=== PATIENT | female | born 1985 | race Caucasian/White ===

== ENCOUNTER 2022-08-13 21:40 | Emergency (ER) | payer SELFPAY ==
[2022-08-13 23:31] LABS: ADD URINE CULTURE? YES (NO); Appearance Clear (Clear); Bacteria Many /HPF (None Seen); Bilirubin Negative (Negative); Blood Negative (Negative); Epithelial Cells Few /HPF (None Seen); Glucose, Urine >=1000 mg/dL (Negative); Hyaline Casts NONE SEEN /LPF (0-2); Ketones Negative (Negative); Leukocyte Esterase Negative (Negative); Nitrite Positive (Negative); Protein,Urine Dip Negative (Negative); RBC 0-2 /HPF (0-5); Specific Gravity >=1.030 (1.005-1.030); Urobilinogen 0.2 mg/dL (0.2)
[2022-08-13 23:33] LABS: Absolute Neutrophil Ct (ANC) 12.08 x10^3/uL (1.4-6.9); BASOPHIL % 0.4 % (0.0-0.4); Basophil (Absolute #) 0.07 x10^3/uL (0-0.4); Eosinophil % 0.5 % (0.00-5.0); Eosinophil (Absolute #) 0.09 x10^3/uL (0-0.5); Hematocrit 41.5 % (35-47); Hemoglobin 13.3 g/dL (12.0-16.0); IMMATURE GRAN # 0.07 x10^3u/L (0.00-0.03); IMMATURE GRAN % 0.4 % (0.00-0.4); Lymphocyte (Absolute #) 3.69 x10^3/uL (1.0-4.6); Lymphocytes % 21.5 % (24.0-44.0); Mean Cell Volume 83.7 fL (78-100); Mean Corpuscular Hemoglobin 26.8 pg (26-32); Mean Platelet Volume 10.4 fL (7.5-11.0); Monocyte (Absolute #) 1.16 x10^3/uL (0.0-1.3); Monocytes % 6.8 % (0.0-12.0); Neutrophil % 70.4 % (36.0-66.0); Platelet Count 326 x10^3/uL (150-450); Red Blood Count 4.96 x10^6/uL (4.1-5.4); Red Cell Distribution Width 14.6 % (11.5-14.0); White Blood Count 17.2 x10^3/uL (4.0-10.5)
[2022-08-13] MEDS ORDERED: Sodium Chloride 0.9% 1000 ML 1,000 ML IV SCH (23:45)
[2022-08-13 23:51] LABS: ALBUMIN 4.1 g/dL (3.5-5.0); ALKALINE PHOSPHATASE 85 U/L (38-126); ANION GAP 16.6 MEQ/L (5-15); BLOOD UREA NITROGEN 16 mg/dL (7-17); CHLORIDE 104 mmol/L (98-107); Calcium 9.2 mg/dL (8.4-10.2); Carbon Dioxide 23 mmol/L (22-30); Creatinine 1 0.74 mg/dL (0.52-1.04); EST GLOMERULAR FILTRATION RATE > 60.0 ML/MIN; Glucose 249 mg/dL (74-106); Potassium 4.1 mmol/L (3.5-5.1); SGOT/AST 17 U/L (14-36); SGPT/ALT 21 U/L (0-35); SODIUM 139 mmol/L (137-145); Total Protein 7.8 g/dL (6.3-8.2)
[2022-08-13] MEDS ORDERED: Hydromorphone 1 mg/ml Injection IV ONE (23:59)
[2022-08-14] MEDS ORDERED: Phenergan 25 MG INJ*** 25 MG in Sodium Chloride 0.9% 100 ML IV PRN ×2
[2022-08-14] MEDS ORDERED: ROCEPHIN 1 Gm-D5w 50 ml Bag** 1 G/50 ML IVPB IV STA (00:03)
--- NOTE | 2022-08-14 00:07 | ERPHSYRPT ---
- History of Present Illness Time Seen by Provider: 08/14/22 00:00 Historian: patient Exam Limitations: no limitations Patient Subjective Stated Complaint: pt state I don't know if I have a kidney stone, ovarian cyst, or just threw my back out Triage Nursing Assessment: pt ambulated into the er; pt is axo x4; c/o left flank pain; pt states pain radiates from LLQ to left flank pain; c/o nausea; abd round, large, soft, nontender; hyperactive bowel sounds; no respiratory distress present; skin PDW; vitals wnl Physician History: Patient is a 36-year-old female presents to our ED for evaluation of left flank pain. Flank pain started just prior to arrival. Patient states she has a history of kidney stones. Patient believes she is experiencing a kidney stone at this time. No trauma. No fever. No nausea vomiting or diaphoresis. No obvious hematuria. No diarrhea. No rash. Pain tends to radiate to her left gr oin. Patient voices no other complaints or concerns at this time. Portions of this note were created with voice recognition technology. There may be grammatical, spelling, punctuation or sound alike errors Timing/Duration: today Activities at Onset: none Quality: aching Abdominal Pain Onset Location: flank (Left flank pain) Severity of Pain-Max: moderate Severity of Pain-Current: mild Modifying Factors: Improves With: nothing Associated Symptoms: denies symptoms Previous symptoms: same symptoms as today Allergies/Adverse Reactions: codeine Allergy (Verified 08/13/22 22:28) ketorolac [From Toradol] Allergy (Verified 08/13/22 22:28) morphine Allergy (Verified 08/13/22 22:28) ondansetron [From Zofran] Allergy (Verified 08/13/22 22:28) piroxicam [From Feldene] Allergy (Verified 08/13/22 22:28) Home Medications: Atorvastatin Calcium 40 mg PO HS 08/13/22 [History] Empagliflozin [Jardiance] 25 mg PO HS 08/13/22 [History] Fenofibrate Nanocrystallized [Fenofibrate] 145 mg PO HS 08/13/22 [History] Flecainide Acetate 50 mg PO BID 08/13/22 [History] Lamotrigine [Lamotrigine ER] 200 mg PO BID 08/13/22 [History] Lisinopril 10 mg [Zestril 10 MG] 10 mg PO HS 08/13/22 [History] Metformin HCl [Metformin ER Osmotic] 1,000 mg PO BID 08/13/22 [History] PANTOPRAZOLE 40 mg Tablet [Protonix 40MG Tablet] 40 mg PO HS 08/13/22 [History] Ropinirole HCl 2 mg PO HS 08/13/22 [History] Tizanidine HCl 4 mg [Zanaflex 4 MG] 4 mg PO TID 08/13/22 [History] Trazodone HCl 200 mg PO HS 08/13/22 [History] Venlafaxine HCl [Venlafaxine HCl ER] 150 mg PO HS 08/13/22 [History] Hx Tetanus, Diphtheria Vaccination/Date Given: No Hx Influenza Vaccination/Date Given: No Immunizations Up to Date: Yes Travel Risk - International Travel Have you traveled outside of the country in past 3 weeks: No - Coronavirus Screening Are you exhibiting any of the following symptoms?: No Close contact with a COVID-19 positive Pt in past 14-21 Days: No - Vaccine Status Have you recieved a Covid-19 vaccination: No - Review of Systems Constitutional: No Symptoms, No Fever, No Chills Eyes: No Symptoms Ears, Nose, & Throat: No Symptoms Respiratory: No Symptoms, No Cough, No Dyspnea Cardiac: No Symptoms, No Chest Pain, No Edema, No Syncope Abdominal/Gastrointestinal: No Symptoms, No Abdominal Pain, No Nausea, No Vomiting, No Diarrhea Genitourinary Symptoms: No Symptoms, No Dysuria Musculoskeletal: No Symptoms, No Back Pain, No Neck Pain Skin: No Symptoms, No Rash Neurological: No Symptoms, No Dizziness, No Focal Weakness, No Sensory Changes Psychological: No Symptoms Endocrine: No Symptoms Hematologic/Lymphatic: No Symptoms Immunological/Allergic: No Symptoms All Other Systems: Reviewed and Negative - Past Medical History Pertinent Past Medical History: Yes Neurological History: No Pertinent History ENT History: No Pertinent History Cardiac History: High Cholesterol Respiratory History: No Pertinent History Endocrine Medical History: Diabetes Type II Musculoskeletal History: Degenerative Disk Disease GI Medical History: GERD History: No Pertinent History Psycho-Social History: Depression Female Reproductive Disorders: Menstrual Problems - Past Surgical History Past Surgical History: Yes Cardiac: Other Gastrointestinal: Cholecystectomy, Hernia Repair Female Surgical History: Hysterectomy Other Surgical History: ablation - Social History Smoking Status: Current some day smoker How long have you smoked: 25 years Exposure to second hand smoke: Yes Drug Use: none Patient Lives Alone: No - Female History Hx Now: No - Nursing Vital Signs Nursing Vital Signs: Initial Vital Signs Temperature 98.1 F 08/13/22 22:10 Pulse Rate 90 08/13/22 22:10 Respiratory Rate 16 08/13/22 22:10 Blood Pressure 114/80 08/13/22 22:10 O2 Sat by Pulse Oximetry 97 08/13/22 22:10 Pain Scale Pain Intensity 8 - Physical Exam General Appearance: no apparent distress, alert Eye Exam: PERRL/EOMI, eyes nml inspection Ears, Nose, Throat Exam: normal ENT inspection, pharynx normal, moist mucous membranes Neck Exam: normal inspection, non-tender, supple, full range of motion Respiratory Exam: normal breath sounds, lungs clear, No respiratory distress Cardiovascular Exam: regular rate/rhythm, normal heart sounds Gastrointestinal/Abdomen Exam: soft, other (Left CVA tenderness), No tenderness, No mass Back Exam: normal inspection, normal range of motion, No CVA tenderness, No vertebral tenderness Extremity Exam: normal inspection, normal range of motion, pelvis stable Neurologic Exam: alert, oriented x 3, cooperative, normal mood/affect, nml cerebellar function, sensation nml, No motor deficits Skin Exam: normal color, warm, dry SpO2 Interpretation: normal SpO2: 97 O2 Delivery: Room Air - Course Nursing assessment & vital signs reviewed: Yes - CT Exams Abdomen/Pelvis CT Interpretation: Tele-radiologist Report (Left periureteral edema. May represent passed stone or a sending urinary tract infection. Lower lobe groundglass bases could represent aspiration pneumonitis or atypical infection) Ordered Tests: Active Orders 24 hr Category Date Time Status IV Insertion STAT Care 08/13/22 23:56 Active ABDOMEN AND PELVIS W/0 CONTRAS [CT] Stat Exams 08/13/22 23:32 Taken CBC W DIFF Stat Lab 08/13/22 23:25 Completed CBC W DIFF Stat Lab 08/13/22 23:56 Ordered CMP Stat Lab 08/13/22 23:25 Completed CULTURE,URINE Stat Lab 08/13/22 23:09 Received UA W/RFX UR CULTURE Stat Lab 08/13/22 23:09 Completed Medication Summary Generic Name Dose Route Start Last Admin Trade Name Freq PRN Reason Stop Dose Admin Sodium Chloride 1,000 mls @ 100 mls/hr 08/13/22 23:45 08/14/22 00:16 Sodium Chloride 0.9% 1000 Ml IV 09/12/22 23:44 100 mls/hr .Q10H JANELL Administration Promethazine HCl 25 mg/ Sodium 101 mls @ 200 mls/hr 08/14/22 00:00 08/14/22 00:17 Chloride IV 09/13/22 00:00 200 mls/hr Q4H PRN PRN Administration UNCONTROLLED NAUSEA Ceftriaxone Sodium/Dextrose 1 g in 50 mls @ 100 mls/hr 08/14/22 00:03 Rocephin 1 Gm-D5w 50 Ml Bag IV 08/14/22 00:32 STAT STA Discontinued Medications Generic Name Dose Route Start Last Admin Trade Name Freq PRN Reason Stop Dose Admin Hydromorphone HCl 0.5 mg 08/13/22 23:59 08/14/22 00:17 Hydromorphone 1 Mg/1ml Inj 1 Mg/Ml Syringe IV 08/14/22 00:00 0.5 mg STAT ONE Administration Hydromorphone HCl Confirm 08/14/22 00:11 Hydromorphone 1 Mg/1ml Inj 1 Mg/Ml Syringe Administered 08/14/22 00:12 Dose 1 mg .ROUTE .STK-MED ONE Sodium Chloride Confirm 08/14/22 00:12 Sodium Chloride 0.9% Administered 08/14/22 00:13 Dose 100 mls @ ud .ROUTE .STK-MED ONE Ceftriaxone Sodium/Dextrose Confirm 08/14/22 00:12 Rocephin 1 Gm-D5w 50 Ml Bag Administered 08/14/22 00:13 Dose 1 g in 50 mls @ ud IV .STK-MED ONE Promethazine HCl Confirm 08/14/22 00:10 Promethazine Hcl 25 Mg/Ml Vial Administered 08/14/22 00:11 Dose 25 mg .ROUTE .STK-MED ONE Lab/Rad Data: Laboratory Result Diagrams 08/13/22 23:25 08/13/22 23:25 Laboratory Results 08/13/22 08/13/22 08/13/22 Range/Units 23:25 23:25 23:09 WBC 17.2 H (4.0-10.5) x10^3/uL RBC 4.96 (4.1-5.4) x10^6/uL Hgb 13.3 (12.0-16.0) g/dL Hct 41.5 (35-47) % MCV 83.7 (78-100) fL MCH 26.8 (26-32) pg MCHC 32.0 (32-36) g/dL RDW 14.6 H (11.5-14.0) % Plt Count 326 (150-450) x10^3/uL MPV 10.4 (7.5-11.0) fL Gran % 70.4 H (36.0-66.0) % Immature Gran % (Auto) 0.4 (0.00-0.4) % Nucleat RBC Rel Count 0.0 (0.00-0.1) % Eos # (Auto) 0.09 (0-0.5) x10^3/uL Immature Gran # (Auto) 0.07 H (0.00-0.03) x10^3u/L Absolute Lymphs (auto) 3.69 (1.0-4.6) x10^3/uL Absolute Monos (auto) 1.16 (0.0-1.3) x10^3/uL Absolute Nucleated RBC 0.00 (0.00-0.01) x10^3u/L Lymphocytes % 21.5 L (24.0-44.0) % Monocytes % 6.8 (0.0-12.0) % Eosinophils % 0.5 (0.00-5.0) % Basophils % 0.4 (0.0-0.4) % Absolute Granulocytes 12.08 H (1.4-6.9) x10^3/uL Basophils # 0.07 (0-0.4) x10^3/uL Sodium 139 (137-145) mmol/L Potassium 4.1 (3.5-5.1) mmol/L Chloride 104 (98-107) mmol/L Carbon Dioxide 23 (22-30) mmol/L Anion Gap 16.6 H (5-15) MEQ/L BUN 16 (7-17) mg/dL Creatinine 0.74 (0.52-1.04) mg/dL Estimated GFR > 60.0 ML/MIN Glucose 249 H (74-106) mg/dL Calcium 9.2 (8.4-10.2) mg/dL Total Bilirubin 0.20 (0.2-1.3) mg/dL AST 17 (14-36) U/L ALT 21 (0-35) U/L Alkaline Phosphatase 85 (38-126) U/L Serum Total Protein 7.8 (6.3-8.2) g/dL Albumin 4.1 (3.5-5.0) g/dL Urine Color Yellow (Yellow) Urine Appearance Clear (Clear) Urine pH 6.0 (4.6-8.0) Ur Specific [place] >=1.030 A (1.005-1.030) Urine Protein Negative (Negative) Urine Glucose (UA) >=1000 A (Negative) mg/dL Urine Ketones Negative (Negative) Urine Blood Negative (Negative) Urine Nitrite Positive A (Negative) Urine Bilirubin Negative (Negative) Urine Urobilinogen 0.2 (0.2) mg/dL Ur Leukocyte Esterase Negative (Negative) U Hyaline Cast (Auto) NONE SEEN (0-2) /LPF Urine Microscopic RBC 0-2 (0-5) /HPF Urine Microscopic WBC 11-20 A (0-5) /HPF Ur Epithelial Cells Few (None Seen) /HPF Urine Bacteria Many A (None Seen) /HPF Urine Culture Reflexed YES (NO) - Progress Progress: improved Progress Note: Patient 36-year-old female presents to our ED with acute onset left flank pain. CT abdomen pelvis ordered. Results pending. CBC CMP ordered. CBC reveals a leukocytosis. UA reveals a urinary tract infection. Patient has multiple pain medication allergies. Patient requesting Dilaudid for pain control. Urinalysis reveals urinary tract infection. Rocephin administered. Sodium chloride normal saline administered. Patient resting comfortably. Complexity of problems addressed is moderate. Acute onset left flank pain with urinary tract infection. Complexity of data reviewed and analyzed is moderate. Test ordered. Test reviewed. Urinalysis evaluated and interpreted by Dr. Parikh. 08/14/22 00:05 Counseled pt/family regarding: lab results, diagnosis, need for follow-up, rad results - Departure Departure Disposition: Home Clinical Impression: Flank pain, Urinary tract infection, Leukocytosis, Hyperglycemia Condition: Stable Critical Care Time: No Referrals: DOCTOR,NO FAMILY [Primary Care Provider] - Follow up/PCP as directed Additional Instructions: Discharge/Care Plan WESLEY HERBERT was seen on 08/14/22 in the Emergency Room. The patient was counseled regarding Diagnosis,Lab results, Imaging studies, need for follow up and when to return to the Emergency Room. Prescriptions given: Discharge Note I have spoken with the patient and/or caregivers. I have explained the patient's condition, diagnosis and treatment plan based on the information available to me at this time. I have answered the patient's and/or caregiver's questions and addressed any concerns. The patient and/or caregivers have as good understanding of the patient's diagnosis, condition and treatment plan as can be expected at this point. The vital signs have been stable. The patient's condition is stable and appropriate for discharge from the emergency department. The patient will pursue further outpatient evaluation with the primary care physician or other designated or consulting physician as outlined in the [facility] instructions. The patient and/or caregivers are agreeable to this plan of care and follow-up instructions have been explained in detail. The patient and/or caregivers have received these instruction. The patient/and or caregivers are aware that any significant change in condition or worsening of symptoms should prompt an immediate return to this or the closest emergency department or call 911.
[2022-08-14] MEDS ORDERED: Phenergan 25 MG INJ ONE (00:10)
[2022-08-14] MEDS ORDERED: Hydromorphone 1 mg/ml Injection ONE (00:11)
[2022-08-14] MEDS ORDERED: ROCEPHIN 1 Gm-D5w 50 ml Bag** 1 G/50 ML IVPB IV ONE (00:12)
[2022-08-14] MEDS ORDERED: Sodium Chloride 0.9% 100 ML ONE (00:12)
[2022-08-14] MEDS ORDERED: Sodium Chloride 0.9% 1000 ML 1,000 ML ONE (00:12)
[2022-08-14 03:06] VITALS: BP 116/74; PULSE 87; O2SAT 96
--- NOTE | 2022-08-14 09:16 | XRAY ---
Indication: Left flank pain. Nausea. Multiple contiguous axial images obtained through the abdomen and pelvis without contrast using renal stone protocol. Comparison: None Lung bases demonstrate minimal patchy left base ground glass airspace disease. Right lung bases clear. Heart not enlarged. No renal calculus or evidence for obstructive uropathy in either system. Stomach distended with food/fluid. Noncontrasted stomach and bowel loops appear nonobstructed with normal appearing appendix. Previous cholecystectomy and partial hysterectomy. 2.5 cm right ovary cyst. No free fluid/air. Remaining liver, pancreas, spleen, adrenal glands, kidneys, ureters, bladder, and aorta are unremarkable for noncontrast exam. Osseous structures intact with L5-S1 fusion with intact anterior hardware. Mild degenerative changes both hips. No ventral or inguinal hernias. Impression: 1. Negative renal calculus or evidence for obstructive uropathy. 2. Incidental left lung base ground glass airspace disease, 2.5 cm right ovary cyst, and chronic bony findings. Comment: Preliminary interpretation made by [facility]. No critical discrepancy.
== END 2022-08-14 01:24 | disposition home or self-care (01) ==
LOC: ED 21:40
DX: N39.0 Urinary tract infection, site not specified (principal); D72.829 Elevated white blood cell count, unspecified; E11.65 Type 2 diabetes mellitus with hyperglycemia; R10.9 Unspecified abdominal pain; E78.5 Hyperlipidemia, unspecified; Z79.84 Long term (current) use of oral hypoglycemic drugs; Z79.899 Other long term (current) drug therapy; Z28.310 Unvaccinated for COVID-19; Z72.0 Tobacco use
CPT/HCPCS: 36000; 36415; 74176; 80053; 81001; 85025; 87077; 87086; 87186; 96374; 99284; J0696; J1170; J2550